=== PATIENT | female | born 1955 | race Caucasian/White ===

== ENCOUNTER 2019-09-23 13:06 | Outpatient (CLI) | payer OTHER, SELFPAY ==
--- NOTE | 2019-09-23 13:12 | USCV_ITS ---
Dinorah Goodwin Age: 64 Gender: F : 1955 Exam Date: 09/23/2019 13:22 Ordering Phys: Allie Reyes MD Technologist: Arlen Enriquez [place] [facility] [place]: Intermittent palpitations BP: 141 / 68 HR: 61 Rhythm: Sinus Technical Quality: Adequate MEASUREMENTS (Male / Female) Normal Values 2D ECHO LV Diastolic Diameter PLAX 3.7 cm 4.2 - 5.9 / 3.9 - 5.3 cm LV Systolic Diameter PLAX 2.1 cm LV Chamber Size 3.1 cm IVS Diastolic Thickness 1.2 cm 0.6 - 1.0 / 0.6 - 0.9 cm IVS Systolic Thickness 1.5 cm LVPW Diastolic Thickness 1.1 cm 0.6 - 1.0 / 0.6 - 0.9 cm LVPW Systolic Thickness 1.2 cm RV Chamber Size 2.1 cm LVOT Diameter 1.7 cm LV Ejection Fraction 2D Teich 74.0 % LV Ejection Fraction MOD 2C 77.1 % LV Ejection Fraction 2C AL 77.8 % LA Diameter 2.8 cm LA Width 2.6 cm LA Height 4.2 cm RA Width 2.7 cm RA Height 4.3 cm Aorta at Sinotubular Diameter 2.4 cm M-MODE LV Diastolic Diameter MM 4.0 cm 4.2 - 5.9 / 3.9 - 5.3 cm LV Systolic Diameter MM 1.8 cm LV Ejection Fraction MM Teich 85.7 % IVS Diastolic Thickness MM 0.9 cm 0.6 - 1.0 / 0.6 - 0.9 cm IVS Systolic Thickness MM 1.4 cm LVPW Diastolic Thickness MM 0.9 cm 0.6 - 1.0 / 0.6 - 0.9 cm LVPW Systolic Thickness MM 1.5 cm RV Diastolic Diameter MM 0.8 cm Aortic Annulus Diameter 2.3 cm LA Ao Ratio MM 1.2 MV E Point Septal Separation 0.2 cm DOPPLER AV Peak Velocity 181.0 cm/s LVOT Peak Velocity 147.0 cm/s AV Area Cont Eq vti 2.0 cm squared AV Area Cont Eq pk 1.8 cm squared MV Area PHT 3.9 cm squared Mitral E to A Ratio 1.4 MV E' Velocity 14.0 cm/s Mitral E to MV E' Ratio 6.7 Mitral E to LV E' Lateral Ratio 6.4 Mitral E to LV E' Septal Ratio 7.0 TV Peak E Velocity 90.0 cm/s Right Atrial Pressure 3.0 mmHg PV Peak Velocity 73.0 cm/s RV Acceleration Time 0.1 s RV Ejection Time 0.3 s RV AcT/ET 0.5 FINDINGS Left Ventricle Normal left ventricular size, systolic function and wall thickness, with no regional wall motion abnormalities. Left ventricular ejection fraction is estimated at 75 %. Normal diastolic function. Right Ventricle Normal right ventricular size and systolic function. Right Atrium Normal right atrial size. Right atrial pressure estimated at 3 mmHg. Left Atrium Normal left atrial size. Mitral Valve Structurally normal mitral valve. No mitral valve stenosis. Trace mitral valve regurgitation. Aortic Valve Aortic valve not well visualized. Probably tricuspid aortic valve. No aortic stenosis or regurgitation. Tricuspid Valve Structurally normal tricuspid valve. Trace tricuspid valve regurgitation. Pulmonic Valve Pulmonic valve not well visualized. Pericardium No pericardial effusion. Aorta Normal size aortic root and proximal ascending aorta. CONCLUSIONS 1. Normal left ventricular size, systolic function and wall thickness, with no regional wall motion abnormalities. Left ventricular ejection fraction is estimated at 75 %. Normal diastolic function. 2. Normal right ventricular size and systolic function. 3. No significant valvular abnormality. 4. No pericardial effusion. 5. No prior similar studies to compare. Zehra Burton MD (Electronically Signed) Final Date: 23 September 2019 18:10 S
== END 2019-09-23 13:07 | disposition home or self-care (01) ==
LOC: US 13:08
PROVIDERS: Family Provider Family Medicine; PCP Family Medicine; Visit Provider Family Medicine
DX: I08.1 Rheumatic disorders of both mitral and tricuspid valves (principal); R00.2 Palpitations
CPT/HCPCS: 93306

== ENCOUNTER → 2021-01-28 14:44 | Outpatient (BNVA) | payer OTHER, SELFPAY | PROVIDERS: Family Provider Family Medicine; PCP Family Medicine; Visit Provider Nurse Practitioner Family | DX: M79.673 Pain in unspecified foot (principal); M79.672 Pain in left foot; Z68.22 Body mass index [BMI] 22.0-22.9, adult; Z71.89 Other specified counseling | CPT/HCPCS: 73630 ==